=== PATIENT | female | born 1970 ===

== ENCOUNTER 2016-03-03 21:55 | Emergency (ER) | payer OTHER ==
--- NOTE | 2016-03-04 03:36 | ED ORDER SUMMARY ---
..... Patient: SHIRLEY MONZON OrderSheet [facility] VisitID: [id number] [place] [address] 45y, F Registration Date/Time: 03/03/2016 ORDER SHEET Weight: 68.0 kg (stated) Allergies: None GENERAL ORDERS: CBC w Diff Urgent (23:04 03/03/2016 Levon Page) (Ack 23:07 AMcQuoid ER Tech1) (2:27 RCollier R.N.) CMP Urgent (23:04 03/03/2016 Levon Page) (Ack 23:07 AMcQuoid ER Tech1) (2:27 RCollier R.N.) UA-Culture if indicated Urgent (23:04 03/03/2016 Levon Page) (Ack 23:07 AMcQuoid ER Tech1) (2:27 RCollier R.N.) Urine Urgent (23:04 03/03/2016 Levon Page) (Ack 23:07 AMcQuoid ER Tech1) (2:27 RCollier R.N.) Urine Drug Screen Urgent (23:04 03/03/2016 Levon Page) (Ack 23:07 AMcQuoid ER Tech1) (2:27 RCollier R.N.) TSH Urgent (23:04 03/03/2016 Levon Page) (Ack 23:07 AMcQuoid ER Tech1) (2:27 RCollier R.N.) Ethyl Alcohol Urgent (23:03/03/2016 Levon Page) (Ack 23:07 AMcQuoid ER Tech1) (2:27 RCollier R.N.) MEDICATION ORDERS: Nicoderm Topical 21 mg (NOW) (03:06 03/04/2016 RCollier R.N. per protocol) (3:06 RCollier R.N.) IV FLUIDS: IV NS : initial bolus none -, then 1000 mL/hr for X1 (NOW) (23:03 03/03/2016 Levon Page) (Ack 23:53 RCollier R.N.) (2:32 RCollier R.N.) ORDER SHEET NOTES: [Electronically signed by Erika Brand R.N. (03:36 03/04/2016)] [Electronically locked/signed by Erika Brand R.N. (03:36 03/04/2016)]
--- NOTE | 2016-03-04 03:36 | ED NURSING NOTES ---
Clinical Report - Nurses [facility] [address] [place] [address] 03/03/2016 21:56 Patient: SHIRLEY MONZON TRIAGE Negative FAST exam done in [facility] as pt was being checked in. --21:58 Erika Brand R.N. Triage time 22:00. Acuity: LEVEL 4. Chief Complaint: (blurred vision, pain in right shoulder/arm). --22:08 Erika Brand R.N. 22:03 03/03/16. BP: 134/75. HR: 71. RR: 16. O2 saturation: 98% on room air. Temp: 97.7 F (oral). Olngoria-Lamar pain scale: 4/10. --22:08 Erika Brand R.N. Weight: 68 kg stated. Height/Length: 59 inches Per Patient. BMI: 30.3. --22:07 Erika Brand R.N. Medications inhalers (pt states they have been changed but she does not know which ones she is currently taking. --22:05 Erika Brand R.N. Vicodin Oral, , dental pain, last dose 5 days ago. --22:06 Erika Brand R.N. Percocet Oral, , dental pain, last dose 5 days ago. --22:07 Erika Brand R.N. Allergies None. --22:04 Erika Brand R.N. History Arrived by private vehicle. Historian: patient. Accompanied by family. Primary physician (Bryan). Onset. (about 2 - 3 days ago). ( pt reports having similar symptoms in the past and today her daughter came to visit and told her to come in). SOCIAL HX: Heavy tobacco smoker (cigarette)- less than 1 pack per day. No alcohol use or drug use. NUTRITIONAL RISK ASSESSMENT: The nutritional risk assessment revealed no deficiencies. FUNCTIONAL ASSESSMENT: Functional assessment: no impairments noted. --22:08 Erika Brand R.N. PROBLEMS: Asthma. URI. Dental Pain. Hypertension. Vomiting. Hiatal Hernia. George's esophagus. --22: Erika Brand R.N. ADDITIONAL SURGERIES: Ear surgery. Knee Surgery. Sinus Surgery. --22: Erika Brand R.N. Interventions ID band on patient. To treatment room. --22: Erika Brand R.N. PHYSICAL ASSESSMENT Ambulatory to room. Patient gowned. GENERAL / NEURO / PSYCH: Alert. Oriented X 4. Mood/affect abnormal (flat) (pt is slow to respond and has slurred speech). HEENT: Mucous membranes are pink. RESPIRATORY: Respirations not labored. CVS: Capillary refill less than 2 seconds. --22: Erika Brand R.N. NURSING PROGRESS NOTES Two patient identifiers checked. Call light placed in reach. Side rails up x 2. Bed placed in lowest position. Brakes of bed on. --22: Erika Brand R.N. Patient ready for evaluation- chart flagged. --22: Erika Brand R.N. 23:13 03/03/16. BP: 123/70. HR: 75. --23:13 Katherine Blevins, ER Tech1 00:05 03/04/2016 Site #1 started via IV in the right antecubital space with an 20g angiocath, with aseptic technique and good blood return; one attempt. Blood drawn: rainbow set. Labeled in the presence of the patient and sent to the lab. Saline lock flushed with 10 mL saline. --00:09 Erika Brand R.N. 02:26 03/04/16. BP: 139/78. HR: 70. RR: 14. O2 saturation: 98% on room air. --02:27 Erika Brand R.N. 00:05 03/04/2016 Started bag #1 1000 mL IV Fluids IV NS (Saline); at 1000 mL/hr over 1 hour(s) via site #1 via IV pump. Allergies verified and confirmed 5 rights. IV patency established. IV site checked: no pain, redness, or swelling. IV flushed thoroughly pre- and post-medication administration. --02:32 Erika Brand R.N. 01:05 03/04/2016 IV Fluids IV NS Discontinued: bag #1 completed. Total amount infused: 1000 mL. IV patency established. IV site checked: no pain, redness, or swelling. IV flushed thoroughly. --02:32 Erika Brand R.N. 02:15. Patient ID band checked for patient name and birthdate: patient confirmed. Instructions provided to collect clean catch urine and patient verbalized understanding urine collected; sample sent to lab. Specimen labeled in the presence of the patient. --02:33 Erika Brand R.N. 02:55- pt found walking out of the ED, when pt asked what she needs she reportedly wanted to go out to the parkinglot to find her daughter, pt redirected back to ED room. Pt reports that she would like a cigarrette, Nicotine patch offered and given to pt. Pt still wanting to leave. EDMD notified. --03:05 Erika Brand R.N. 03:06 03/04/2016 NICODERM Topical Patch/Pad 21 mg. Applied to the left upper arm. Allergies verified and confirmed 5 rights. --03:06 Erika Brand R.N. 03:25-Pt found walking down hallway with family, blanket wrapped around her and dressed in own clothing. Pt told that if she wants to leave, I can get her AMA paperwork to sign, pt refused. Pt informed that I at least need to remove the IV. Pt states "I can take it out myself, I've done that before". Pt allows IV to be removed. --03:34 Erika Brand R.N. 03:30 03/04/2016 Site #1 removed upon discharge. Catheter intact. Manual pressure and bandage applied. --03:34 Erika Brand R.N. DISPOSITION / DISCHARGE The patient left the Emergency Department against medical advice and without completion of treatment; patient was accompanied by a family member. The patient appears to be alert, oriented x4, coherent and in no acute distress. The patient stated is leaving the ED due to the long waiting time. Notified the ED physician of patient departure. Prior to leaving the ED, she was advised to stay for completion of treatment and return if needed. Patient refused to sign form prior to leaving. She left the Emergency Department ambulatory and via private vehicle. --03:35 Erika Brand R.N. Locked/Released at 03/04/2016 3:36 by Erika Brand R.N.
--- NOTE | 2016-03-04 03:36 | ED CLINICAL REPORT ---
Clinical Report - Physicians/Mid Levels [facility] [address] [place] [address] 03/03/2016 21:56 Patient: SHIRLEY MONZON Time Seen: 22:04; initial patient contact. Arrived- By private vehicle. Historian- patient. HISTORY OF PRESENT ILLNESS Chief Complaint: FACIAL DROOP. The patient has had new onset of constant weakness of the left face (mild), left arm (mild), left hand (mild), left leg (mild) and left foot (mild). She has had numbness. No tingling, impaired speech or swallowing, visual disturbance or recent fall. No difficulty walking. This started today and is still present. At its maximum deficit described as mild. When seen in the E.D., deficit described as mild. No dizziness, altered mental status, seizure or blackouts. Usually is alert and oriented X3 and has normal mobility. Similar symptoms previously: None. Recent medical care: Not recently seen/assessed. REVIEW OF SYSTEMS No fever, headache, head injury or difficulty breathing. All systems otherwise negative, except as recorded above. PAST HISTORY ( Asthma. URI. Dental Pain. Hypertension. Vomiting. Hiatal Hernia. George's esophagus. SURGERIES: Ear surgery. Knee Surgery. Sinus Surgery). Medications: Percocet Oral, , dental pain, last dose 5 days ago. Vicodin Oral, , dental pain, last dose 5 days ago. inhalers (pt states they have been changed but she does not know which ones she is currently taking. Allergies: None. SOCIAL HISTORY Current every day smoker. No alcohol use or drug use. ADDITIONAL NOTES The nursing notes have been reviewed with agreement regarding the chief complaint, PMH and patient medications and allergies. PHYSICAL EXAM Vital Signs: 03/03/2016 22:03 BP: 134/75. HR: 71. RR: 16. O2 saturation: 98%. Temp: 97.7 F. Longoria-Lamar pain scale: 4/10. Have been reviewed as normal. Appearance: Alert. No acute distress. She appears intoxicated. Head: Head atraumatic. Eyes: Pupils equal, round and reactive to light. ENT: Normal ENT inspection. Airway intact. Pharynx normal. Neck: Normal inspection. Neck supple. CVS: Normal heart rate and rhythm. Heart sounds normal. Respiratory: No respiratory distress. Breath sounds normal. Abdomen: Soft and nontender. No organomegaly. Skin: Skin warm and dry. Normal skin color. No rash. Normal skin turgor. Extremities: Extremities exhibit normal ROM. No lower extremity edema. Neuro: Alert. Oriented X 3. Mood/affect normal. Speech normal. Cranial nerves normal (as tested). No cerebellar findings. No motor deficit. No sensory deficit. Reflexes normal. LABS, X-RAYS, AND EKG Laboratory Tests: UA-Culture if indicated: (TORREY: 03/03/2016 02:10) ( [facility] 03/04/2016 03:03) Final results Test Result Flag Units (Reference) URINE COLOR YELLOW URINE APPEARANCE CLEAR URINE GLUCOSE NEGATIVE (NEGATIVE) URINE BILIRUBIN NEGATIVE (NEGATIVE) URINE KETONE NEGATIVE (NEGATIVE) URINE SPECIFIC GRAVITY 1.015 (1.010-1.030) URINE PH 6.5 (5.0-8.0) URINE PROTEIN NEGATIVE (NEGATIVE) URINE UROBILINOGEN 0.2 EU/dL (0.2-1.0) URINE NITRITE NEGATIVE (NEGATIVE) URINE BLOOD NEGATIVE (NEGATIVE) URINE LEUK ESTERASE NEGATIVE (NEGATIVE) URINE RBC 1-3 rbc/hpf (0-1) URINE WBC 1-3 wbc/hpf (0-1) URINE EPITHELIAL CELLS 0-1 EPI/hpf (0-5) URINE BACTERIA NONE SEEN (NONE SEEN) URINE COMMENT CULT NOT INDICATED URINE CULTURES ARE SET-UP BASED ON THE FOLLOWING CRITERIA:POSITIVE NITRITEPOSITIVE LEUKOCYTE ESTERASEGREATER THAN 10 WHITE BLOOD CELLSMODERATE (2+) OR GREATER BACTERIA Urine: (TORREY: 03/03/2016 02:10) ( [facility] 03/04/2016 02:30) Final results Test Result Flag Units (Reference) URINE NEGATIVE CBC w Diff: (TORREY: 03/03/2016 00:05) ( [facility] 03/04/2016 00:51) Final results Test Result Flag Units (Reference) WHITE BLOOD COUNT 12.6 H K/uL (4.5-11.5) RED BLOOD COUNT 5.10 M/uL (4.00-5.20) HEMOGLOBIN 10.8 L gm/dL (12.0-16.0) HEMATOCRIT 36.4 % (36.0-46.0) MEAN CELL VOLUME 71 L fL (80-100) MEAN CORPUSCULAR HGB 21 L pg (26-34) MEAN CORPUSCULAR HGB CONC 30 L g/dL (31-37) RED CELL DISTRIBUTION WIDTH 18.9 H % (11.6-14.8) PLATELET COUNT 476 H K/uL (150-400) LYMPH % 28.2 % (25-40) MONO % 3.8 % (3-14) GRANULOCYTE % 68.0 (53-90) RBC MORPHOLOGY 1+ HYPOCHROMIA~~1+ MICROCYTOSIS~~1+ ANISOCYTOSIS Urine Drug Screen: (TORREY: 03/03/2016 02:10) ( Msg[facility]cvd 03/04/2016 03:27) Final results Test Result Flag Units (Reference) AMPHETAMINE/METHAMPHETAMINE NEGATIVE (NEGATIVE) BARBITURATE NEGATIVE (NEGATIVE) BENZODIAZEPINE POSITIVE H (NEGATIVE) CANNABINOID POSITIVE H (NEGATIVE) COCAINE NEGATIVE (NEGATIVE) ECSTASY NEGATIVE (NEGATIVE) METHADONE NEGATIVE (NEGATIVE) OPIATE POSITIVE H (NEGATIVE) The urine drug screen is a qualitative screening test fordrug overdose and abuse. All screen results should beconsidered as presumptive.Drugs screened for are as follows:BenzodiazepinesCocaineAmphetamines/MetamphetaminesTHC (Tetrahydrocannabinol)OpiatesBarbituratesEcstasyMethadonePositive results are unconfirmed. For confirmation, notifythe lab for the specimen to be sent to the reference lab.All confirmations must be performed by a differentmethodology.The ingestion of natural herbal and plant productscontaining Ephedra/Ephedra metabolites can produce in urineone or more substances capable of cross reacting withamphetamine/methamphetamine immunoassays. These testsprovide a preliminary result only. A more specificalternative chemical method must be used to obtain aconfirmed analytical result. CMP: (TORREY: 03/03/2016 00:05) ( MsgRcvd 03/04/2016 00:36) Final results Test Result Flag Units (Reference) GLUCOSE 115 H mg/dL (70-110) BUN 8 mg/dL (7-18) CREATININE 0.8 mg/dL (0.6-1.3) Estimated GFR >60 mL/min Estimated GFR- >60 mL/min Note: Persistent reduction over 3 months in eGFR<60 mL/min/1.73 m2 defines CKD. Patients with eGFR values>=60 mL/min/1.73 m2 may also have CKD if evidence ofpersistent proteinuria. Additional information may be foundat www.kidney.org. SODIUM 140 mmol/L (136-145) POTASSIUM 3.8 mmol/L (3.5-5.1) CHLORIDE 104 mmol/L (98-107) CARBON DIOXIDE 32 mmol/L (21-32) CALCIUM 7.7 L mg/dL (8.5-10.1) TOTAL PROTEIN 6.6 g/dL (6.4-8.2) ALBUMIN 3.0 L g/dL (3.3-5.0) BILIRUBIN, TOTAL 0.1 mg/dL (0.0-1.0) ALKALINE PHOSPHATASE 67 U/L (46-116) AST (SGOT) 9 L U/L (15-37) ALT (SGPT) 13 U/L (12-78) ETHYL ALCOHOL <3 L mg/dL (3-10) THYROID STIMULATING HORMONE 0.897 uIU/mL (0.34-3.74) . CLINICAL IMPRESSION Occasional substance abuse- marijuana, benzodiazepines, hydrocodone with intoxication. (Electronically signed by Paul Day Dr. 03/04/2016 7:53)
--- NOTE | 2016-03-04 03:36 | ED ORDER SUMMARY ---
..... Patient: SHIRLEY MONZON OrderSheet [facility] VisitID: [id number] [place] [address] 45y, F Registration Date/Time: 03/03/2016 ORDER SHEET Weight: 68.0 kg (stated) Allergies: None GENERAL ORDERS: CBC w Diff Urgent (23:04 03/03/2016 Levon Page) (Ack 23:07 AMcQuoid ER Tech1) (2:27 RCollier R.N.) CMP Urgent (23:04 03/03/2016 Levon Page) (Ack 23:07 AMcQuoid ER Tech1) (2:27 RCollier R.N.) UA-Culture if indicated Urgent (23:04 03/03/2016 Levon Pgae) (Ack 23:07 AMcQuoid ER Tech1) (2:27 RCollier R.N.) Urine Urgent (23:04 03/03/2016 Levon Page) (Ack 23:07 AMcQuoid ER Tech1) (2:27 RCollier R.N.) Urine Drug Screen Urgent (23:04 03/03/2016 Levon Page) (Ack 23:07 AMcQuoid ER Tech1) (2:27 RCollier R.N.) TSH Urgent (23:04 03/03/2016 Levon Page) (Ack 23:07 AMcQuoid ER Tech1) (2:27 RCollier R.N.) Ethyl Alcohol Urgent (23:03/03/2016 Levon Page) (Ack 23:07 AMcQuoid ER Tech1) (2:27 RCollier R.N.) MEDICATION ORDERS: Nicoderm Topical 21 mg (NOW) (03:06 03/04/2016 RCollier R.N. per protocol) (3:06 RCollier R.N.) IV FLUIDS: IV NS : initial bolus none -, then 1000 mL/hr for X1 (NOW) (23:03 03/03/2016 Levon Page) (Ack 23:53 RCollier R.N.) (2:32 RCollier R.N.) ORDER SHEET NOTES: [Electronically signed by Erika Brand R.N. (03:36 03/04/2016)] [Electronically locked/signed by Erika Brand R.N. (03:36 03/04/2016)]
--- NOTE | 2016-03-04 07:53 | ED DISCHARGE INSTRUCTIONS ---
Patient: SHIRLEY MONZON General Instructions [facility] VisitID: [id number] [address] [place] [address] 45y, F Registration Date/Time: 03/03/2016 Occasional substance abuse- marijuana, benzodiazepines, hydrocodone with intoxication. (Electronically signed by Paul Day Dr. 03/04/2016 7:53)
--- NOTE | 2016-03-04 07:53 | ED MED RECONCILIATION SUMMARY ---
Patient: SHIRLEY MONZON Medication Reconciliation Report [facility] VisitID: [id number] [address] [place] [address] 45y, F Registration Date/Time: 03/03/2016 Weight: 68.0 kg Height/Length: 59 in. BMI: 30.3 ALLERGIES: None The patient's Home Medications are listed below: THE FOLLOWING MEDICATIONS NEED TO BE RECONCILED: inhalers (pt states they have been changed but she does not know which ones she is currently taking Percocet Oral, dental pain, last dose: 5 days ago Vicodin Oral, dental pain, last dose: 5 days ago The source(s) of the original Home Medication information: Not obtained. The following Medications were given to the patient in the Emergency Department: IV NS IV Fluids bolus 0, then 1000 mL/hr, administered: 03/04/2016 12:05:00 AM NICODERM [TOPICAL] Topical 21 mg, administered: 03/04/2016 3:06:00 AM The following Medications were prescribed to the patient: None.
--- NOTE | 2016-03-04 07:53 | ED MAR SUMMARY ---
..... Medication Administration Record [facility] [address] [place] [address] Patient: SHIRLEY MONZON Visit ID: [id number] 45y, F Weight: 68.0 kg Height/Length: 59 in BMI: 30.3 ALLERGIES: None Start 00:05 03/04/2016 Erika Brand R.N., Stop 01:05 03/04/2016 Erika Brand R.N. Medication Administered: IV NS (SALINE), Dose: IV Fluids over 1 hour(s), Rate: 1000 mL/hr, Dispensed: 1000 mL bag, Site: #1 right AC. Medication Ordered: IV NS : initial bolus none -, then 1000 mL/hr for X1 (NOW). Given 03:06 03/04/2016 Erika Brand RMaribel Medication Administered: NICODERM [TOPICAL], Dose: 21 mg Patch/Pad Topical. Medication Ordered: Nicoderm Topical 21 mg (NOW).
--- NOTE | 2016-03-04 07:53 | ED DISCHARGE INSTRUCTIONS ---
Patient: SHIRLEY MONZON General Instructions [facility] VisitID: [id number] [address] [place] [address] 45y, F Registration Date/Time: 03/03/2016 Occasional substance abuse- marijuana, benzodiazepines, hydrocodone with intoxication. (Electronically signed by Paul Day Dr. 03/04/2016 7:53)
--- NOTE | 2016-03-04 07:53 | ED MAR SUMMARY ---
..... Medication Administration Record [facility] [address] [place] [address] Patient: SHIRLEY MONZON Visit ID: [id number] 45y, F Weight: 68.0 kg Height/Length: 59 in BMI: 30.3 ALLERGIES: None Start 00:05 03/04/2016 Erika Brand R.N., Stop 01:05 03/04/2016 Erika Brand R.N. Medication Administered: IV NS (SALINE), Dose: IV Fluids over 1 hour(s), Rate: 1000 mL/hr, Dispensed: 1000 mL bag, Site: #1 right AC. Medication Ordered: IV NS : initial bolus none -, then 1000 mL/hr for X1 (NOW). Given 03:06 03/04/2016 Erika Brand RMaribel Medication Administered: NICODERM [TOPICAL], Dose: 21 mg Patch/Pad Topical. Medication Ordered: Nicoderm Topical 21 mg (NOW).
--- NOTE | 2016-03-04 07:53 | ED MED RECONCILIATION SUMMARY ---
Patient: SHIRLEY MONZON Medication Reconciliation Report [facility] VisitID: [id number] [address] [place] [address] 45y, F Registration Date/Time: 03/03/2016 Weight: 68.0 kg Height/Length: 59 in. BMI: 30.3 ALLERGIES: None The patient's Home Medications are listed below: THE FOLLOWING MEDICATIONS NEED TO BE RECONCILED: inhalers (pt states they have been changed but she does not know which ones she is currently taking Percocet Oral, dental pain, last dose: 5 days ago Vicodin Oral, dental pain, last dose: 5 days ago The source(s) of the original Home Medication information: Not obtained. The following Medications were given to the patient in the Emergency Department: IV NS IV Fluids bolus 0, then 1000 mL/hr, administered: 03/04/2016 12:05:00 AM NICODERM [TOPICAL] Topical 21 mg, administered: 03/04/2016 3:06:00 AM The following Medications were prescribed to the patient: None.
== END 2016-03-04 03:36 | disposition home or self-care (01) ==
LOC: ED SRH 21:55
DX: F12.129 Cannabis abuse with intoxication, unspecified (principal); F11.129 Opioid abuse with intoxication, unspecified; J45.909 Unspecified asthma, uncomplicated
CPT/HCPCS: 90004; 90100; 92010; 92760; 92761; 92762; 92763; 92764; 92765; 92766; 92767; 93070; 93140; 95059